=== PATIENT | female | born 1930 | race Caucasian/White ===

== ENCOUNTER 2017-10-04 14:43 | Outpatient (CLI) | payer MEDICARE, MEDICAID ==
[~2017-10-04 14:43] MED LIST: ALBU8.5H8 IH; ASPI-1265 PO; DEXL60CA3 PO; FOLI1TAB4 PO; HCTZ25T; IBAN150T PO; LEVO25TA7 PO; MECL-111 PO; NITR0.4T SL; POTA8TAB8 PO; PROC5TAB PO; RIVA10TA PO; SIMV20TA PO
[2017-10-04] MEDS ORDERED: HUM7525 SQ ×2 (15:50)
[2017-10-04] MEDS ORDERED: GABA-532 PO (15:50)
[2017-10-04] MEDS ORDERED: LORA10TA7 PO (15:50)
[2017-10-04] MEDS ORDERED: OXYB5TAB11 PO (15:50)
[2017-10-04 16:17] LABS: BASOPHILS # (AUTO) 0.1 X10'3 (0-0.2); BASOPHILS % (AUTO) 1.8 % (0-1); EOSINOPHILS # (AUTO) 0.2 X10'3 (0-0.9); EOSINOPHILS % (AUTO) 2.9 % (0-6); LYMPHOCYTES # (AUTO) 1.4 X10'3 (1.1-4.8); LYMPHOCYTES % (AUTO) 25.3 % (21-51); MEAN CORPUSCULAR HEMOGLOBIN 30.7 PG (27.0-31.0); MEAN CORPUSCULAR HGB CONC 33.2 % (33.0-36.5); MEAN CORPUSCULAR VOLUME 92.4 FL (78-98); MEAN PLATELET VOLUME 9.5 FL (7.4-10.4); MONOCYTES # (AUTO) 0.6 X10'3 (0-0.9); MONOCYTES % (AUTO) 9.9 % (2-12); NEUTROPHILS # (AUTO) 3.4 X10'3 (1.8-7.7); NEUTROPHILS % (AUTO) 60.1 % (42-75); PRE OP HEMATOCRIT 39.4 % (35.0-45.0); PRE OP HEMOGLOBIN 13.1 g/dL (12.0-16.0); PRE OP PLATELET COUNT 106 X10'3 (140-440); RED BLOOD COUNT 4.27 X10'6 (4.20-5.60); RED CELL DISTRIBUTION WIDTH 14.7 % (11.5-14.5)
[2017-10-04 16:32] LABS: ALBUMIN/GLOBULIN RATIO 0.9 (1.1-1.5); ALKALINE PHOSPHATASE 93 IU/L (46-116); BLOOD UREA NITROGEN 18 MG/DL (7-18); BUN/CREATININE RATIO 22.5 (6.6-38.0); CALCIUM 8.4 MG/DL (8.5-10.1); CHLORIDE 107 MMOL/L (99-107); PRE OP ALT 19 U/L (30-65); PRE OP ANION GAP 1 (8-16); PRE OP AST 10 U/L (10-37); PRE OP BILIRUB, TOTAL 0.3 MG/DL (0.0-1.0); PRE OP POTASSIUM 3.9 MMOL/L (3.4-5.1); PRE OP SODIUM 139 MMOL/L (135-145); TOTAL CARBON DIOXIDE 30.7 MMOL/L (24-32); TOTAL PROTEIN 6.4 G/DL (6.4-8.2); eGFR 68 ML/MIN
[2017-10-04 16:34] LABS: HEMOGLOBIN A1C 7.4 % (4.5-6.2)
[2017-10-04 16:36] LABS: PRE OP GLUCOSE 235 MG/DL (70-104)
== END 2017-10-04 23:59 | disposition home or self-care (01) ==
LOC: PRE-OP 14:43 → EDSTATUS 10-10 09:45
PROVIDERS: ATTEND Orthopaedic Surgery
DX: Z01.818 Encounter for other preprocedural examination (principal); M19.011 Primary osteoarthritis, right shoulder; M75.121 Complete rotator cuff tear or rupture of right shoulder, not specified as traumatic; I11.0 Hypertensive heart disease with heart failure; I50.9 Heart failure, unspecified; J44.9 Chronic obstructive pulmonary disease, unspecified; E11.9 Type 2 diabetes mellitus without complications; J45.909 Unspecified asthma, uncomplicated; Z86.73 Personal history of transient ischemic attack (TIA), and cerebral infarction without residual deficits; Z85.3 Personal history of malignant neoplasm of breast
CPT/HCPCS: 36415; 71046; 80053; 83036; 85025; 87070

== ENCOUNTER 2017-11-08 22:23 | Inpatient (IN) | payer MEDICARE, MEDICAID ==
[~2017-11-08] VITALS: Ht 157.5 cm; Wt 102.7 kg
[~2017-11-08 22:23] MED LIST changes: -DEXL60CA3 PO; -FOLI1TAB4 PO; +GABA-532 PO; -HCTZ25T; +HUM7525 SQ; -IBAN150T PO; +LORA10TA7 PO; -MECL-111 PO; +OXYB5TAB11 PO; -POTA8TAB8 PO
[2017-11-08 22:41] LABS: BASOPHILS % (AUTO) 0.3 % (0-1); EOSINOPHILS # (AUTO) 0.2 X10'3 (0-0.9); HEMATOCRIT 38.4 % (35.0-45.0); HEMOGLOBIN 13.2 g/dl (12.0-16.0); LYMPHOCYTES # (AUTO) 1.3 X10'3 (1.1-4.8); LYMPHOCYTES % (AUTO) 23.1 % (21-51); MEAN CORPUSCULAR HEMOGLOBIN 31.5 PG (27.0-31.0); MEAN CORPUSCULAR HGB CONC 34.5 % (33.0-36.5); MEAN CORPUSCULAR VOLUME 91.4 FL (78-98); MEAN PLATELET VOLUME 9.2 FL (7.4-10.4); MONOCYTES # (AUTO) 0.6 X10'3 (0-0.9); MONOCYTES % (AUTO) 10.8 % (2-12); NEUTROPHILS # (AUTO) 3.5 X10'3 (1.8-7.7); NEUTROPHILS % (AUTO) 61.8 % (42-75); PLATELET COUNT 124 X10'3 (140-440); RED CELL DISTRIBUTION WIDTH 14.7 % (11.5-14.5); WHITE BLOOD COUNT 5.7 X10'3 (4.5-11.0)
[2017-11-08 22:54] LABS: PARTIAL THROMBOPLASTIN TIME 25 SECONDS (22-32); PROTHROMBIN TIME 10.4 SECONDS (9.0-12.0)
[2017-11-08 22:57] LABS: ALANINE AMINOTRANSFERASE 15 U/L (12-78); ALBUMIN 3.1 G/DL (3.4-5.0); ALBUMIN/GLOBULIN RATIO 0.8 (1.1-1.5); ALKALINE PHOSPHATASE 90 IU/L (46-116); ANION GAP 7 (8-16); ASPARTATE AMINO TRANSFERASE 12 U/L (10-37); BILIRUBIN,TOTAL 0.5 MG/DL (0.1-1.0); BLOOD UREA NITROGEN 16 MG/DL (7-18); BUN/CREATININE RATIO 19.5 (6.6-38.0); CALCIUM 8.5 MG/DL (8.5-10.1); CHLORIDE 107 MMOL/L (99-107); CREATININE 0.82 MG/DL (0.40-0.90); ETHANOL < 0.010 GM/DL (0.0-0.010); GLUCOSE 226 MG/DL (70-104); MAGNESIUM 1.8 MG/DL (1.5-2.4); PHOSPHORUS 2.9 MG/DL (2.3-4.5); POTASSIUM 3.8 MMOL/L (3.5-5.1); SODIUM 143 MMOL/L (135-145); TOTAL CARBON DIOXIDE 28.8 MMOL/L (24-32); TOTAL PROTEIN 6.9 G/DL (6.4-8.2); eGFR 66 ML/MIN
[2017-11-08] MEDS ORDERED: aspirin 325mg tablet PO ONE (23:15)
[2017-11-09] MEDS ORDERED: levetiracetam 100mg/ml inj IV ONE (00:51)
[2017-11-09 00:57] LABS: CLARITY,URINE SLIGHTLY CLOUDY (Clear); COLOR,URINE YELLOW (Yellow); GLUCOSE, URINE 100 mg/dl (Neg); KETONES,URINE NEGATIVE (Neg); LEUKOCYTE ESTERASE ,URINE TRACE (Neg); NITRITES, URINE POSITIVE (Neg); OCCULT BLOOD,URINE SMALL (Neg); PROTEIN,URINE NEGATIVE (Neg)
[2017-11-09 01:22] LABS: UA COLLECTION TYPE CLN CATCH MIDSTREAM
[2017-11-09] MEDS: levetiracetam inj 1,000 MG in normal saline 100ml IV soln 90 ML IV SCH ×3 (01:36→19:38)
[2017-11-09 01:39] LABS: BACTERIA,URINE 4+ /HPF (Neg); RBC,URINE 0-2 /HPF (0-2); SQUAMOUS EPITHELIAL CELL,UR FEW /LPF (FEW)
[2017-11-09 01:40] LABS: MUCUS STRANDS NONE SEEN /LPF (Neg)
[2017-11-09] MEDS ORDERED: CefTRIAXone 2gm/NS 100ml IVPB 100 ML IV ONE (03:40)
[2017-11-09] MEDS ORDERED: magnesium hydroxide 30ml (MOM) UD suspension PO PRN (04:25)
[2017-11-09] MEDS ORDERED: acetaminophen 325mg tablet PO PRN (04:25)
[2017-11-09] MEDS ORDERED: ondansetron/PF 4mg/2ml inj IV PRN ×2 (04:25→17:20)
[2017-11-09] MEDS ORDERED: mag hydrox/Alum hydrox/simeth 30ml oral suspension PO PRN (04:25)
[2017-11-09] MEDS ORDERED: nitroGLYCERIN 0.4mg SUBLingual tab SL PRN (04:30)
[2017-11-09] MEDS ORDERED: albuterol 2.5 MG/3 ML nebule NEB PRN (04:57)
[2017-11-09] MEDS ORDERED: levetiracetam inj 1,000 MG in normal saline 100ml IV soln 90 ML IV SCH ×4 (08:00)
[2017-11-09] MEDS: levoTHYROXINE 25mcg tablet PO SCH (08:53)
[2017-11-09] MEDS: atorvastatin 10mg tablet PO SCH (08:53)
[2017-11-09] MEDS: rivaroxaban 10mg tablet PO SCH (09:45)
[2017-11-09 14:15] VITALS: BP 118/69
[2017-11-09] MEDS ORDERED: guaiFENesin/DM/phenylephrine syrup 120ml bottle PO PRN (15:50)
[2017-11-09] MEDS ORDERED: dextrose ORAL solution 15 GM/59 ML bottle PO PRN ×2 (17:25)
[2017-11-09] MEDS ORDERED: glucagon, human recombinant 1mg kit SUBCUT PRN (17:25)
[2017-11-09] MEDS ORDERED: dextrose 50%-water 50ml dispensing syringe IV PRN ×2 (17:25)
[2017-11-09] MEDS ORDERED: MESSAGE TO PHARMACY PO ONE (17:25)
[2017-11-09] MEDS: amox tr/potassium clavulanate 875/125mg TAB PO SCH ×2 (17:30→17:52)
[2017-11-09 18:00] VITALS: BP 129/70
[2017-11-09] MEDS: insulin Lispro (HumaLOG) vial - multi-dose SQ SCH ×2 (18:58→21:36)
[2017-11-09] MEDS: nystatin 15 GM powder TP SCH (21:00)
[2017-11-09] MEDS: aspirin 81mg tab.chew PO SCH (21:13)
[2017-11-09] MEDS: insulin glargine (Lantus) pen - multi-dose SQ SCH (21:35)
[2017-11-09 22:00] VITALS: BP 105/58
[2017-11-10 02:00] VITALS: BP 110/48
[2017-11-10 06:27] LABS: BASOPHILS % (AUTO) 0.2 % (0-1); EOSINOPHILS # (AUTO) 0.2 X10'3 (0-0.9); EOSINOPHILS % (AUTO) 5.4 % (0-6); HEMATOCRIT 35.3 % (35.0-45.0); LYMPHOCYTES # (AUTO) 1.3 X10'3 (1.1-4.8); LYMPHOCYTES % (AUTO) 30.3 % (21-51); MEAN CORPUSCULAR HEMOGLOBIN 31.1 PG (27.0-31.0); MEAN CORPUSCULAR VOLUME 91.6 FL (78-98); MEAN PLATELET VOLUME 10.4 FL (7.4-10.4); MONOCYTES # (AUTO) 0.5 X10'3 (0-0.9); MONOCYTES % (AUTO) 11.4 % (2-12); NEUTROPHILS # (AUTO) 2.3 X10'3 (1.8-7.7); NEUTROPHILS % (AUTO) 52.7 % (42-75); PLATELET COUNT 113 X10'3 (140-440); RED BLOOD COUNT 3.86 X10'6 (4.20-5.60); RED CELL DISTRIBUTION WIDTH 14.8 % (11.5-14.5); WHITE BLOOD COUNT 4.3 X10'3 (4.5-11.0)
[2017-11-10 06:43] VITALS: BP 127/59
[2017-11-10 06:44] LABS: ALANINE AMINOTRANSFERASE 18 U/L (12-78); ALBUMIN 2.6 G/DL (3.4-5.0); ALBUMIN/GLOBULIN RATIO 0.8 (1.1-1.5); ALKALINE PHOSPHATASE 74 IU/L (46-116); ANION GAP 9 (8-16); ASPARTATE AMINO TRANSFERASE 14 U/L (10-37); BILIRUBIN,TOTAL 0.5 MG/DL (0.1-1.0); BLOOD UREA NITROGEN 20 MG/DL (7-18); BUN/CREATININE RATIO 27.8 (6.6-38.0); CALCIUM 8.5 MG/DL (8.5-10.1); CHLORIDE 108 MMOL/L (99-107); CREATININE 0.72 MG/DL (0.40-0.90); GLUCOSE 194 MG/DL (70-104); POTASSIUM 4.1 MMOL/L (3.5-5.1); SODIUM 144 MMOL/L (135-145); TOTAL CARBON DIOXIDE 26.8 MMOL/L (24-32); eGFR 77 ML/MIN
[2017-11-10] MEDS: levoTHYROXINE 25mcg tablet PO SCH (07:58)
[2017-11-10] MEDS: cetirizine 10mg tablet PO SCH (07:58)
[2017-11-10] MEDS: atorvastatin 10mg tablet PO SCH (07:58)
[2017-11-10] MEDS: levetiracetam inj 1,000 MG in normal saline 100ml IV soln 90 ML IV SCH (07:59)
[2017-11-10] MEDS: rivaroxaban 10mg tablet PO SCH (07:59)
[2017-11-10] MEDS: amox tr/potassium clavulanate 875/125mg TAB PO SCH ×2 (07:59→18:07)
[2017-11-10] MEDS: nystatin 15 GM powder TP SCH ×3 (08:00→21:25)
[2017-11-10 08:49] LABS: LARGE PLATELETS FEW; PLATELET ESTIMATE DECREASED
[2017-11-10] MEDS: insulin Lispro (HumaLOG) vial - multi-dose SQ SCH ×3 (09:17→18:55)
[2017-11-10 10:00] VITALS: BP 124/55
[2017-11-10 18:00] VITALS: BP 119/52
[2017-11-10] MEDS: lactobacillus rhamnosus 10,000 MMU CELLS/CAPSULE PO SCH (18:07)
[2017-11-10] MEDS: NUT.TX.GLUC.INTOLER,LAC-FR,REG (BOOST GLUCOSE CONTROL) 237 ML PO SCH (18:07)
[2017-11-10] MEDS ORDERED: levetiracetam 250mg tablet PO SCH (20:00)
[2017-11-10] MEDS: aspirin 81mg tab.chew PO SCH (21:24)
[2017-11-10] MEDS: insulin glargine (Lantus) pen - multi-dose SQ SCH (21:27)
[2017-11-10 22:00] VITALS: BP 111/45
[2017-11-11 06:00] VITALS: BP 125/52
[2017-11-11 06:01] LABS: BASOPHILS % (AUTO) 0.4 % (0-1); EOSINOPHILS # (AUTO) 0.3 X10'3 (0-0.9); EOSINOPHILS % (AUTO) 5.4 % (0-6); HEMATOCRIT 34.9 % (35.0-45.0); HEMOGLOBIN 11.9 g/dl (12.0-16.0); LYMPHOCYTES # (AUTO) 1.5 X10'3 (1.1-4.8); LYMPHOCYTES % (AUTO) 30.9 % (21-51); MEAN CORPUSCULAR HEMOGLOBIN 31.3 PG (27.0-31.0); MEAN CORPUSCULAR HGB CONC 34.2 % (33.0-36.5); MEAN CORPUSCULAR VOLUME 91.5 FL (78-98); MONOCYTES # (AUTO) 0.5 X10'3 (0-0.9); MONOCYTES % (AUTO) 10.8 % (2-12); NEUTROPHILS # (AUTO) 2.5 X10'3 (1.8-7.7); NEUTROPHILS % (AUTO) 52.5 % (42-75); PLATELET COUNT 116 X10'3 (140-440); RED BLOOD COUNT 3.82 X10'6 (4.20-5.60); RED CELL DISTRIBUTION WIDTH 14.8 % (11.5-14.5); WHITE BLOOD COUNT 4.8 X10'3 (4.5-11.0)
[2017-11-11 07:08] LABS: ANION GAP 10 (8-16); BILIRUBIN,TOTAL 0.4 MG/DL (0.1-1.0); BLOOD UREA NITROGEN 24 MG/DL (7-18); BUN/CREATININE RATIO 33.8 (6.6-38.0); CALCIUM 8.3 MG/DL (8.5-10.1); CHLORIDE 106 MMOL/L (99-107); CREATININE 0.71 MG/DL (0.40-0.90); GLUCOSE 149 MG/DL (70-104); SODIUM 142 MMOL/L (135-145); TOTAL PROTEIN 5.8 G/DL (6.4-8.2); eGFR 78 ML/MIN
[2017-11-11 07:09] LABS: ALANINE AMINOTRANSFERASE 19 U/L (12-78); ALBUMIN 2.5 G/DL (3.4-5.0); ALBUMIN/GLOBULIN RATIO 0.8 (1.1-1.5); ALKALINE PHOSPHATASE 72 IU/L (46-116); ASPARTATE AMINO TRANSFERASE 12 U/L (10-37)
[2017-11-11] MEDS: levoTHYROXINE 25mcg tablet PO SCH (07:33)
[2017-11-11] MEDS: amox tr/potassium clavulanate 875/125mg TAB PO SCH ×2 (07:33→18:34)
[2017-11-11] MEDS: rivaroxaban 10mg tablet PO SCH (07:34)
[2017-11-11] MEDS: atorvastatin 10mg tablet PO SCH (07:34)
[2017-11-11] MEDS: cetirizine 10mg tablet PO SCH (07:35)
[2017-11-11] MEDS: lactobacillus rhamnosus 10,000 MMU CELLS/CAPSULE PO SCH ×2 (07:35→18:34)
[2017-11-11] MEDS: nystatin 15 GM powder TP SCH ×3 (08:00→21:14)
[2017-11-11] MEDS: NUT.TX.GLUC.INTOLER,LAC-FR,REG (BOOST GLUCOSE CONTROL) 237 ML PO SCH ×3 (08:00→18:00)
[2017-11-11] MEDS: insulin Lispro (HumaLOG) vial - multi-dose SQ SCH ×3 (09:30→18:43)
[2017-11-11 19:00] VITALS: BP 116/54
[2017-11-11] MEDS: aspirin 81mg tab.chew PO SCH (20:26)
[2017-11-11] MEDS: insulin glargine (Lantus) pen - multi-dose SQ SCH (21:17)
[2017-11-11 22:00] VITALS: BP 118/50
[2017-11-12 06:00] VITALS: BP 136/66
[2017-11-12 06:23] LABS: BASOPHILS % (AUTO) 0.5 % (0-1); EOSINOPHILS # (AUTO) 0.3 X10'3 (0-0.9); EOSINOPHILS % (AUTO) 5.3 % (0-6); HEMATOCRIT 38.6 % (35.0-45.0); HEMOGLOBIN 13.2 g/dl (12.0-16.0); LYMPHOCYTES # (AUTO) 1.6 X10'3 (1.1-4.8); MEAN CORPUSCULAR HEMOGLOBIN 31.4 PG (27.0-31.0); MEAN CORPUSCULAR HGB CONC 34.2 % (33.0-36.5); MEAN CORPUSCULAR VOLUME 91.8 FL (78-98); MEAN PLATELET VOLUME 10.3 FL (7.4-10.4); MONOCYTES # (AUTO) 0.5 X10'3 (0-0.9); MONOCYTES % (AUTO) 9.5 % (2-12); NEUTROPHILS # (AUTO) 3.2 X10'3 (1.8-7.7); NEUTROPHILS % (AUTO) 55.7 % (42-75); PLATELET COUNT 130 X10'3 (140-440); RED CELL DISTRIBUTION WIDTH 14.6 % (11.5-14.5); WHITE BLOOD COUNT 5.7 X10'3 (4.5-11.0)
[2017-11-12 07:13] LABS: ALANINE AMINOTRANSFERASE 22 U/L (12-78); ALBUMIN 2.9 G/DL (3.4-5.0); ALBUMIN/GLOBULIN RATIO 0.8 (1.1-1.5); ALKALINE PHOSPHATASE 78 IU/L (46-116); ANION GAP 9 (8-16); ASPARTATE AMINO TRANSFERASE 16 U/L (10-37); BILIRUBIN,TOTAL 0.5 MG/DL (0.1-1.0); BLOOD UREA NITROGEN 23 MG/DL (7-18); BUN/CREATININE RATIO 32.9 (6.6-38.0); CALCIUM 8.8 MG/DL (8.5-10.1); CHLORIDE 105 MMOL/L (99-107); GLUCOSE 137 MG/DL (70-104); POTASSIUM 4.3 MMOL/L (3.5-5.1); SODIUM 143 MMOL/L (135-145); TOTAL CARBON DIOXIDE 29.4 MMOL/L (24-32); TOTAL PROTEIN 6.5 G/DL (6.4-8.2); eGFR 79 ML/MIN
[2017-11-12] MEDS: NUT.TX.GLUC.INTOLER,LAC-FR,REG (BOOST GLUCOSE CONTROL) 237 ML PO SCH ×3 (08:10→18:00)
[2017-11-12] MEDS: lactobacillus rhamnosus 10,000 MMU CELLS/CAPSULE PO SCH ×2 (08:15→17:12)
[2017-11-12] MEDS: cetirizine 10mg tablet PO SCH (08:16)
[2017-11-12] MEDS: rivaroxaban 10mg tablet PO SCH (08:16)
[2017-11-12] MEDS: levoTHYROXINE 25mcg tablet PO SCH (08:16)
[2017-11-12] MEDS: atorvastatin 10mg tablet PO SCH (08:16)
[2017-11-12] MEDS: nystatin 15 GM powder TP SCH ×3 (08:17→21:12)
[2017-11-12] MEDS: amox tr/potassium clavulanate 875/125mg TAB PO SCH ×2 (08:17→17:11)
[2017-11-12] MEDS: insulin Lispro (HumaLOG) vial - multi-dose SQ SCH ×3 (09:07→19:17)
[2017-11-12 10:00] VITALS: BP 130/57
[2017-11-12 18:00] VITALS: BP 148/56
[2017-11-12] MEDS: aspirin 81mg tab.chew PO SCH (21:01)
[2017-11-12] MEDS: insulin glargine (Lantus) pen - multi-dose SQ SCH (21:09)
[2017-11-12 22:00] VITALS: BP 129/52
[2017-11-13 05:21] LABS: BASOPHILS % (AUTO) 0.3 % (0-1); EOSINOPHILS # (AUTO) 0.4 X10'3 (0-0.9); EOSINOPHILS % (AUTO) 5.3 % (0-6); HEMATOCRIT 39.7 % (35.0-45.0); HEMOGLOBIN 13.8 g/dl (12.0-16.0); LYMPHOCYTES # (AUTO) 1.9 X10'3 (1.1-4.8); MEAN CORPUSCULAR HEMOGLOBIN 31.6 PG (27.0-31.0); MEAN CORPUSCULAR HGB CONC 34.6 % (33.0-36.5); MEAN CORPUSCULAR VOLUME 91.1 FL (78-98); MEAN PLATELET VOLUME 9.3 FL (7.4-10.4); MONOCYTES # (AUTO) 0.6 X10'3 (0-0.9); MONOCYTES % (AUTO) 9.3 % (2-12); NEUTROPHILS # (AUTO) 3.7 X10'3 (1.8-7.7); NEUTROPHILS % (AUTO) 56.1 % (42-75); PLATELET COUNT 139 X10'3 (140-440); RED BLOOD COUNT 4.36 X10'6 (4.20-5.60); RED CELL DISTRIBUTION WIDTH 14.5 % (11.5-14.5); WHITE BLOOD COUNT 6.6 X10'3 (4.5-11.0)
[2017-11-13 05:47] LABS: ALANINE AMINOTRANSFERASE 23 U/L (12-78); ALBUMIN 2.9 G/DL (3.4-5.0); ALBUMIN/GLOBULIN RATIO 0.8 (1.1-1.5); ALKALINE PHOSPHATASE 71 IU/L (46-116); ANION GAP 7 (8-16); ASPARTATE AMINO TRANSFERASE 17 U/L (10-37); BILIRUBIN,TOTAL 0.6 MG/DL (0.1-1.0); BLOOD UREA NITROGEN 25 MG/DL (7-18); BUN/CREATININE RATIO 33.3 (6.6-38.0); CALCIUM 8.5 MG/DL (8.5-10.1); CHLORIDE 106 MMOL/L (99-107); CREATININE 0.75 MG/DL (0.40-0.90); GLUCOSE 111 MG/DL (70-104); POTASSIUM 4.4 MMOL/L (3.5-5.1); SODIUM 142 MMOL/L (135-145); TOTAL CARBON DIOXIDE 28.7 MMOL/L (24-32); TOTAL PROTEIN 6.5 G/DL (6.4-8.2); eGFR 73 ML/MIN
[2017-11-13 06:00] VITALS: BP 109/48
[2017-11-13] MEDS: NUT.TX.GLUC.INTOLER,LAC-FR,REG (BOOST GLUCOSE CONTROL) 237 ML PO SCH ×3 (08:27→18:00)
[2017-11-13] MEDS: levoTHYROXINE 25mcg tablet PO SCH (08:31)
[2017-11-13] MEDS: atorvastatin 10mg tablet PO SCH (08:32)
[2017-11-13] MEDS: lactobacillus rhamnosus 10,000 MMU CELLS/CAPSULE PO SCH ×2 (08:33→17:20)
[2017-11-13] MEDS: cetirizine 10mg tablet PO SCH (08:33)
[2017-11-13] MEDS: amox tr/potassium clavulanate 875/125mg TAB PO SCH ×2 (08:34→17:19)
[2017-11-13] MEDS: rivaroxaban 10mg tablet PO SCH (08:35)
[2017-11-13] MEDS: nystatin 15 GM powder TP SCH ×3 (08:35→21:50)
[2017-11-13] MEDS: insulin Lispro (HumaLOG) vial - multi-dose SQ SCH ×3 (09:00→19:17)
[2017-11-13 10:00] VITALS: BP 125/54
[2017-11-13 18:02] VITALS: BP 112/61
[2017-11-13] MEDS: aspirin 81mg tab.chew PO SCH (19:17)
[2017-11-13] MEDS: insulin glargine (Lantus) pen - multi-dose SQ SCH (21:42)
[2017-11-13 22:01] VITALS: BP 122/44
[2017-11-14 06:00] VITALS: BP 119/60
[2017-11-14 06:28] LABS: BASOPHILS % (AUTO) 0.4 % (0-1); EOSINOPHILS # (AUTO) 0.3 X10'3 (0-0.9); EOSINOPHILS % (AUTO) 4.8 % (0-6); HEMATOCRIT 39.9 % (35.0-45.0); HEMOGLOBIN 13.7 g/dl (12.0-16.0); LYMPHOCYTES # (AUTO) 1.6 X10'3 (1.1-4.8); LYMPHOCYTES % (AUTO) 25.8 % (21-51); MEAN CORPUSCULAR HEMOGLOBIN 31.5 PG (27.0-31.0); MEAN CORPUSCULAR HGB CONC 34.3 % (33.0-36.5); MEAN CORPUSCULAR VOLUME 91.8 FL (78-98); MEAN PLATELET VOLUME 9.9 FL (7.4-10.4); MONOCYTES # (AUTO) 0.6 X10'3 (0-0.9); MONOCYTES % (AUTO) 9.8 % (2-12); NEUTROPHILS # (AUTO) 3.6 X10'3 (1.8-7.7); NEUTROPHILS % (AUTO) 59.2 % (42-75); PLATELET COUNT 135 X10'3 (140-440); RED BLOOD COUNT 4.35 X10'6 (4.20-5.60); RED CELL DISTRIBUTION WIDTH 14.4 % (11.5-14.5)
[2017-11-14 06:48] LABS: ALANINE AMINOTRANSFERASE 24 U/L (12-78); ALBUMIN 2.8 G/DL (3.4-5.0); ALBUMIN/GLOBULIN RATIO 0.8 (1.1-1.5); ALKALINE PHOSPHATASE 74 IU/L (46-116); ANION GAP 9 (8-16); ASPARTATE AMINO TRANSFERASE 19 U/L (10-37); BILIRUBIN,TOTAL 0.7 MG/DL (0.1-1.0); BLOOD UREA NITROGEN 28 MG/DL (7-18); BUN/CREATININE RATIO 36.4 (6.6-38.0); CALCIUM 8.7 MG/DL (8.5-10.1); CHLORIDE 105 MMOL/L (99-107); CREATININE 0.77 MG/DL (0.40-0.90); GLUCOSE 168 MG/DL (70-104); POTASSIUM 4.4 MMOL/L (3.5-5.1); SODIUM 141 MMOL/L (135-145); TOTAL CARBON DIOXIDE 27.4 MMOL/L (24-32); TOTAL PROTEIN 6.4 G/DL (6.4-8.2); eGFR 71 ML/MIN
[2017-11-14] MEDS ORDERED: gabapentin 300mg capsule PO SCH (08:00)
[2017-11-14] MEDS: NUT.TX.GLUC.INTOLER,LAC-FR,REG (BOOST GLUCOSE CONTROL) 237 ML PO SCH (08:14)
[2017-11-14] MEDS: levoTHYROXINE 25mcg tablet PO SCH (08:22)
[2017-11-14] MEDS: lactobacillus rhamnosus 10,000 MMU CELLS/CAPSULE PO SCH (08:22)
[2017-11-14] MEDS: amox tr/potassium clavulanate 875/125mg TAB PO SCH (08:22)
[2017-11-14] MEDS: rivaroxaban 10mg tablet PO SCH (08:23)
[2017-11-14] MEDS: cetirizine 10mg tablet PO SCH (08:23)
[2017-11-14] MEDS: atorvastatin 10mg tablet PO SCH (08:23)
[2017-11-14] MEDS: nystatin 15 GM powder TP SCH (08:24)
[2017-11-14] MEDS: insulin Lispro (HumaLOG) vial - multi-dose SQ SCH (08:52)
[2017-11-14 10:00] VITALS: BP 110/55
[2017-11-14] MEDS ORDERED: AMOX-580 PO (11:36)
== END 2017-11-14 12:30 | disposition home or self-care (01) | DRG 689 ==
LOC: ER 22:23 → ED HOLD 11-09 04:25 → ORTHO 4S 11-09 14:00
PROVIDERS: ADMIT Internal Medicine; ATTEND Internal Medicine
PROC: 4A00X4Z Measurement of Central Nervous Electrical Activity, External Approach (ICD-10-PCS; principal; 2017-11-10)
DX: N39.0 Urinary tract infection, site not specified (principal); G93.40 Encephalopathy, unspecified; D69.6 Thrombocytopenia, unspecified; I48.91 Unspecified atrial fibrillation; E11.9 Type 2 diabetes mellitus without complications; B96.20 Unspecified Escherichia coli [E. coli] as the cause of diseases classified elsewhere; E03.9 Hypothyroidism, unspecified; E78.00 Pure hypercholesterolemia, unspecified; J44.9 Chronic obstructive pulmonary disease, unspecified; J01.90 Acute sinusitis, unspecified; G89.29 Other chronic pain; M19.90 Unspecified osteoarthritis, unspecified site; I10 Essential (primary) hypertension; I25.10 Atherosclerotic heart disease of native coronary artery without angina pectoris; J32.9 Chronic sinusitis, unspecified; Z90.49 Acquired absence of other specified parts of digestive tract; Z90.710 Acquired absence of both cervix and uterus; Z88.5 Allergy status to narcotic agent; Z88.6 Allergy status to analgesic agent; Z88.8 Allergy status to other drugs, medicaments and biological substances; Z79.01 Long term (current) use of anticoagulants; Z79.4 Long term (current) use of insulin; Z79.82 Long term (current) use of aspirin; Z79.899 Other long term (current) drug therapy; Z85.3 Personal history of malignant neoplasm of breast; Z86.73 Personal history of transient ischemic attack (TIA), and cerebral infarction without residual deficits; Z87.11 Personal history of peptic ulcer disease; Z87.442 Personal history of urinary calculi
CPT/HCPCS: 36415; 70450; 70551; 71045; 80053; 80320; 81001; 82948; 83036; 83735; 84100; 84484; 85025; 85610; 85730; 87070; 87077; 87088; 87186; 92616; 93005; 93306; 94760; 95816; 96365; 97110; 97116; 97161; 97530; 99285; A6212; A6213; J0696; J1815; J1953; J2405; J7030

== ENCOUNTER 2018-05-18 20:02 | Inpatient (IN) | payer MEDICARE, MEDICAID ==
[~2018-05-18] VITALS: Ht 157.5 cm; Wt 104.8 kg
[~2018-05-18 20:02] MED LIST changes: +AMOX-580 PO; -OXYB5TAB11 PO; -PROC5TAB PO; +PROC5TAB10 PO
[2018-05-18 20:31] LABS: BASOPHILS % (AUTO) 0.3 % (0-1); EOSINOPHILS % (AUTO) 0 % (0-6); HEMATOCRIT 41.8 % (35.0-45.0); LYMPHOCYTES # (AUTO) 0.5 X10'3 (1.1-4.8); MEAN CORPUSCULAR HEMOGLOBIN 30.8 PG (27.0-31.0); MEAN CORPUSCULAR HGB CONC 33.5 % (33.0-36.5); MEAN CORPUSCULAR VOLUME 91.9 FL (78-98); MEAN PLATELET VOLUME 9.5 FL (7.4-10.4); MONOCYTES # (AUTO) 0.5 X10'3 (0-0.9); MONOCYTES % (AUTO) 3.6 % (2-12); NEUTROPHILS # (AUTO) 12.5 X10'3 (1.8-7.7); NEUTROPHILS % (AUTO) 92.1 % (42-75); PLATELET COUNT 125 X10'3 (140-440); RED BLOOD COUNT 4.55 X10'6 (4.20-5.60); RED CELL DISTRIBUTION WIDTH 14.7 % (11.5-14.5); WHITE BLOOD COUNT 13.6 X10'3 (4.5-11.0)
[2018-05-18 20:40] LABS: PARTIAL THROMBOPLASTIN TIME 24 SECONDS (22-32); PROTHROMBIN TIME 10.8 SECONDS (9.0-12.0)
[2018-05-18 20:47] LABS: ALANINE AMINOTRANSFERASE 13 U/L (12-78); ALBUMIN 3.1 G/DL (3.4-5.0); ALBUMIN/GLOBULIN RATIO 0.8 (1.1-1.5); ALKALINE PHOSPHATASE 65 IU/L (46-116); ANION GAP 10 (8-16); ASPARTATE AMINO TRANSFERASE 14 U/L (10-37); BILIRUBIN,TOTAL 0.8 MG/DL (0.1-1.0); BLOOD UREA NITROGEN 25 MG/DL (7-18); BUN/CREATININE RATIO 19.8 (6.6-38.0); CALCIUM 8.8 MG/DL (8.5-10.1); CHLORIDE 102 MMOL/L (99-107); CREATININE 1.26 MG/DL (0.40-0.90); GLUCOSE 251 MG/DL (70-104); POTASSIUM 4.1 MMOL/L (3.5-5.1); SODIUM 139 MMOL/L (135-145); TOTAL CARBON DIOXIDE 27.5 MMOL/L (24-32); TOTAL PROTEIN 6.9 G/DL (6.4-8.2); eGFR 40 ML/MIN
[2018-05-18 20:59] LABS: TOTAL CELLS COUNTED 100
[2018-05-18] MEDS ORDERED: CefTRIAXone 2gm/D5W 50ml 50 ML IV ONE (21:05)
[2018-05-18] MEDS ORDERED: vancomycin/NS 1 GM ADD-VANTAGE 250 ML IV ONE (21:05)
[2018-05-18] MEDS ORDERED: normal saline 1000ML IV soln IV ONE (21:05)
[2018-05-18] MEDS ORDERED: KEPPRA (21:11)
[2018-05-18 21:25] LABS: MAGNESIUM 1.8 MG/DL (1.5-2.4)
[2018-05-18 21:29] LABS: CLARITY,URINE CLOUDY (Clear); COLOR,URINE YELLOW (Yellow); GLUCOSE, URINE NEGATIVE (Neg); KETONES,URINE TRACE mg/dl (Neg); LEUKOCYTE ESTERASE ,URINE LARGE (Neg); NITRITES, URINE NEGATIVE (Neg); OCCULT BLOOD,URINE SMALL (Neg); PROTEIN,URINE NEGATIVE (Neg); UROBILINOGEN,URINE 0.2 E.U/dL (0.2-1.0)
[2018-05-18 21:30] LABS: PLATELET ESTIMATE DECREASED
[2018-05-18 21:38] LABS: UA COLLECTION TYPE STRAIGHT CATH
[2018-05-18 21:40] LABS: BACTERIA,URINE 4+ /HPF (Neg); MUCUS STRANDS FEW /LPF (Neg); RBC,URINE 0-2 /HPF (0-2); SQUAMOUS EPITHELIAL CELL,UR NONE SEEN /LPF (FEW); TRANSITIONAL EPI CELLS,URINE FEW /HPF; WBC,URINE 50-100 /HPF (0-4)
[2018-05-18] MEDS ORDERED: acetaminophen 1,000mg/100ml IV 100 ML IV ONE (23:30)
[2018-05-18] MEDS ORDERED: ketorolac trometh. 30mg/ml inj. IV ONE (23:35)
[2018-05-18] MEDS ORDERED: normal saline 1000ml 1,000 ML IV ONE (23:40)
[2018-05-18] MEDS ORDERED: normal saline 1000ml 1,000 ML IV SCH (23:49)
[2018-05-18] MEDS ORDERED: mag hydrox/Alum hydrox/simeth 30ml oral suspension PO PRN (23:50)
[2018-05-18] MEDS ORDERED: acetaminophen 325mg tablet PO PRN (23:50)
[2018-05-18] MEDS ORDERED: ondansetron/PF 4mg/2ml inj IV PRN (23:50)
[2018-05-18] MEDS ORDERED: magnesium hydroxide 30ml (MOM) UD suspension PO PRN (23:50)
[2018-05-18] MEDS ORDERED: dextrose ORAL solution 15 GM/59 ML bottle PO PRN ×2 (23:55)
[2018-05-18] MEDS ORDERED: glucagon, human recombinant 1mg kit SUBCUT PRN (23:55)
[2018-05-18] MEDS ORDERED: dextrose 50%-water 50ml dispensing syringe IV PRN ×2 (23:55)
[2018-05-18] MEDS ORDERED: MESSAGE TO PHARMACY PO ONE (23:55)
[2018-05-19] VITALS: BP 97/48
[2018-05-19] MEDS ORDERED: nitroGLYCERIN 0.4mg SUBLingual tab SL PRN
[2018-05-19] MEDS ORDERED: proCHLORperazine 5mg tablet PO PRN
[2018-05-19] MEDS ORDERED: albuterol 2.5 MG/3 ML nebule NEB PRN
[2018-05-19 00:14] LABS: HEMOGLOBIN A1C 7.1 % (4.5-6.2)
[2018-05-19] MEDS: LIDOcaine 5% patch TP SCH ×4 (00:15→23:08)
[2018-05-19] MEDS ORDERED: vancomycin/NS 500MG ADD-VANT 100 ML IV ONE (01:00)
[2018-05-19] MEDS: CefTRIAXone/D5W-Rocephin 1gm 50 ML IV SCH ×2 (01:12→08:11)
[2018-05-19 03:30] LABS: ALANINE AMINOTRANSFERASE 12 U/L (12-78); ALBUMIN 2.4 G/DL (3.4-5.0); ALBUMIN/GLOBULIN RATIO 0.7 (1.1-1.5); ALKALINE PHOSPHATASE 47 IU/L (46-116); ANION GAP 7 (8-16); ASPARTATE AMINO TRANSFERASE 21 U/L (10-37); BILIRUBIN,TOTAL 0.5 MG/DL (0.1-1.0); BLOOD UREA NITROGEN 25 MG/DL (7-18); BUN/CREATININE RATIO 22.7 (6.6-38.0); CALCIUM 7.6 MG/DL (8.5-10.1); CHLORIDE 105 MMOL/L (99-107); GLUCOSE 235 MG/DL (70-104); POTASSIUM 3.5 MMOL/L (3.5-5.1); SODIUM 137 MMOL/L (135-145); TOTAL CARBON DIOXIDE 24.6 MMOL/L (24-32); TOTAL PROTEIN 5.7 G/DL (6.4-8.2); eGFR 47 ML/MIN
[2018-05-19] MEDS ORDERED: heparin, porcine 5000 units/ml vial SQ SCH (08:00)
[2018-05-19] MEDS: levetiracetam 250mg tablet PO SCH ×2 (08:11→19:29)
[2018-05-19] MEDS: loratadine 10mg tablet PO SCH (08:11)
[2018-05-19] MEDS: levoTHYROXINE 25mcg tablet PO SCH (08:11)
[2018-05-19] MEDS: nystatin 15 GM powder TP SCH ×3 (08:11→21:25)
[2018-05-19] MEDS: rivaroxaban 10mg tablet PO SCH (08:17)
[2018-05-19 09:06] LABS: BASOPHILS % (AUTO) 0.4 % (0-1); EOSINOPHILS # (AUTO) 0.1 X10'3 (0-0.9); EOSINOPHILS % (AUTO) 0.8 % (0-6); HEMATOCRIT 39.4 % (35.0-45.0); HEMOGLOBIN 13.2 g/dl (12.0-16.0); LYMPHOCYTES % (AUTO) 9.5 % (21-51); MEAN CORPUSCULAR HGB CONC 33.4 % (33.0-36.5); MEAN CORPUSCULAR VOLUME 92.8 FL (78-98); MEAN PLATELET VOLUME 10.4 FL (7.4-10.4); MONOCYTES # (AUTO) 0.6 X10'3 (0-0.9); MONOCYTES % (AUTO) 5.6 % (2-12); NEUTROPHILS # (AUTO) 8.8 X10'3 (1.8-7.7); NEUTROPHILS % (AUTO) 83.7 % (42-75); PLATELET COUNT 100 X10'3 (140-440); RED BLOOD COUNT 4.25 X10'6 (4.20-5.60); RED CELL DISTRIBUTION WIDTH 14.9 % (11.5-14.5); WHITE BLOOD COUNT 10.6 X10'3 (4.5-11.0)
[2018-05-19 14:00] VITALS: BP 119/50
[2018-05-19] MEDS ORDERED: doxycycline hyclate 100mg tablet.DR PO SCH (17:30)
[2018-05-19] MEDS: insulin Lispro (HumaLOG) vial - multi-dose SQ SCH (18:42)
[2018-05-19 19:00] VITALS: BP 121/54
[2018-05-19] MEDS ORDERED: aspirin 81mg tab.chew PO SCH (21:00)
[2018-05-19] MEDS ORDERED: insulin glargine (Lantus) pen - multi-dose SQ SCH (21:00)
[2018-05-19] MEDS ORDERED: atorvastatin 10mg tablet PO SCH (21:00)
[2018-05-19] MEDS: ciprofloxacin 250mg tablet PO SCH (22:10)
[2018-05-20] VITALS: BP 122/49
[2018-05-20 04:49] LABS: BASOPHILS % (AUTO) 0.2 % (0-1); EOSINOPHILS # (AUTO) 0.1 X10'3 (0-0.9); HEMATOCRIT 35.5 % (35.0-45.0); HEMOGLOBIN 12.1 g/dl (12.0-16.0); LYMPHOCYTES # (AUTO) 0.9 X10'3 (1.1-4.8); LYMPHOCYTES % (AUTO) 9.1 % (21-51); MEAN CORPUSCULAR HEMOGLOBIN 31.2 PG (27.0-31.0); MEAN CORPUSCULAR VOLUME 91.8 FL (78-98); MEAN PLATELET VOLUME 10.2 FL (7.4-10.4); MONOCYTES # (AUTO) 0.6 X10'3 (0-0.9); MONOCYTES % (AUTO) 6.2 % (2-12); NEUTROPHILS # (AUTO) 7.8 X10'3 (1.8-7.7); NEUTROPHILS % (AUTO) 83.5 % (42-75); PLATELET COUNT 91 X10'3 (140-440); RED BLOOD COUNT 3.87 X10'6 (4.20-5.60); RED CELL DISTRIBUTION WIDTH 14.9 % (11.5-14.5); WHITE BLOOD COUNT 9.4 X10'3 (4.5-11.0)
[2018-05-20 05:03] LABS: ALANINE AMINOTRANSFERASE 16 U/L (12-78); ALBUMIN 2.2 G/DL (3.4-5.0); ALBUMIN/GLOBULIN RATIO 0.6 (1.1-1.5); ALKALINE PHOSPHATASE 49 IU/L (46-116); ANION GAP 7 (8-16); ASPARTATE AMINO TRANSFERASE 16 U/L (10-37); BILIRUBIN,TOTAL 0.6 MG/DL (0.1-1.0); BLOOD UREA NITROGEN 21 MG/DL (7-18); BUN/CREATININE RATIO 26.3 (6.6-38.0); CALCIUM 7.9 MG/DL (8.5-10.1); CHLORIDE 106 MMOL/L (99-107); GLUCOSE 183 MG/DL (70-104); POTASSIUM 3.7 MMOL/L (3.5-5.1); SODIUM 137 MMOL/L (135-145); TOTAL CARBON DIOXIDE 24.3 MMOL/L (24-32); TOTAL PROTEIN 5.7 G/DL (6.4-8.2); eGFR 68 ML/MIN
[2018-05-20 05:34] LABS: TOTAL CELLS COUNTED 100
[2018-05-20 05:35] LABS: PLATELET ESTIMATE DECREASED
[2018-05-20] MEDS: nystatin 15 GM powder TP SCH ×2 (07:10→12:24)
[2018-05-20] MEDS: loratadine 10mg tablet PO SCH (07:11)
[2018-05-20] MEDS: LIDOcaine 5% patch TP SCH ×2 (07:11→08:00)
[2018-05-20] MEDS: levoTHYROXINE 25mcg tablet PO SCH (07:12)
[2018-05-20] MEDS: levetiracetam 250mg tablet PO SCH (07:12)
[2018-05-20] MEDS: rivaroxaban 10mg tablet PO SCH (07:13)
[2018-05-20] MEDS ORDERED: DOXYCYCLINE 100MG CAPSULE PO SCH (07:30)
[2018-05-20 07:32] VITALS: BP 119/58
[2018-05-20] MEDS ORDERED: gabapentin 300mg capsule PO SCH (08:00)
[2018-05-20] MEDS ORDERED: DOXY-224 PO (09:23)
[2018-05-20] MEDS ORDERED: LANTUS SQ (09:23)
[2018-05-20] MEDS ORDERED: NEOM1PAC2 TP (09:23)
[2018-05-20] MEDS ORDERED: CIPR250T4 PO (09:23)
[2018-05-20] MEDS: ciprofloxacin 250mg tablet PO SCH (09:33)
[2018-05-20] MEDS: insulin Lispro (HumaLOG) vial - multi-dose SQ SCH ×2 (09:35→13:49)
[2018-05-20 12:01] VITALS: BP 112/62
[2018-05-20] MEDS ORDERED: lactobacillus rhamnosus 10,000 MMU CELLS/CAPSULE PO SCH (20:00)
[2018-05-21] MEDS ORDERED: VANCOMYCIN LEVEL IV ONE (23:30)
== END 2018-05-20 14:59 | disposition home or self-care (01) | DRG 871 ==
LOC: ER 20:03 → ED HOLD 23:49 → SUR 3N 05-19 00:40
PROVIDERS: ADMIT Internal Medicine; ATTEND Internal Medicine
DX: A41.9 Sepsis, unspecified organism (principal); N17.0 Acute kidney failure with tubular necrosis; L03.115 Cellulitis of right lower limb; N39.0 Urinary tract infection, site not specified; Z68.41 Body mass index [BMI] 40.0-44.9, adult; E11.9 Type 2 diabetes mellitus without complications; E78.00 Pure hypercholesterolemia, unspecified; G89.29 Other chronic pain; I50.9 Heart failure, unspecified; L89.159 Pressure ulcer of sacral region, unspecified stage; I10 Essential (primary) hypertension; I25.10 Atherosclerotic heart disease of native coronary artery without angina pectoris; I48.91 Unspecified atrial fibrillation; J44.9 Chronic obstructive pulmonary disease, unspecified; R65.20 Severe sepsis without septic shock; M19.90 Unspecified osteoarthritis, unspecified site; M25.511 Pain in right shoulder; Z90.710 Acquired absence of both cervix and uterus; Z90.11 Acquired absence of right breast and nipple; Z79.899 Other long term (current) drug therapy; Z88.5 Allergy status to narcotic agent; Z88.8 Allergy status to other drugs, medicaments and biological substances; Z85.3 Personal history of malignant neoplasm of breast; Z86.73 Personal history of transient ischemic attack (TIA), and cerebral infarction without residual deficits; Z87.11 Personal history of peptic ulcer disease; Z87.442 Personal history of urinary calculi; Z82.5 Family history of asthma and other chronic lower respiratory diseases
CPT/HCPCS: 36415; 71045; 80053; 81001; 82948; 83036; 83605; 83735; 84145; 84484; 85025; 85610; 85730; 87040; 87070; 87077; 87088; 87186; 93005; 96365; 97110; 97116; 97162; 97530; 99285; A4315; J0131; J0696; J1815; J1885; J3370; J7030; Q0164

== ENCOUNTER 2018-06-20 09:30 | Day surgery (SDC) | payer MEDICARE, MEDICAID ==
[~2018-06-20 09:30] MED LIST changes: -AMOX-580 PO; +CIPR250T4 PO; +DOXY-224 PO; -HUM7525 SQ; +KEPPRA; +LANTUS SQ; +NEOM1PAC2 TP
[2018-06-20] MEDS ORDERED: LIDOcaine/PRILOcaine 5gm cream TP ONE (10:00)
== END 2018-06-20 11:06 | disposition home or self-care (01) ==
LOC: WOUND CARE 09:30
PROVIDERS: ATTEND Surgery
DX: E11.622 Type 2 diabetes mellitus with other skin ulcer (principal); L89.322 Pressure ulcer of left buttock, stage 2; L98.411 Non-pressure chronic ulcer of buttock limited to breakdown of skin; I25.10 Atherosclerotic heart disease of native coronary artery without angina pectoris; J44.9 Chronic obstructive pulmonary disease, unspecified; I11.0 Hypertensive heart disease with heart failure; I50.9 Heart failure, unspecified; E78.00 Pure hypercholesterolemia, unspecified; I48.91 Unspecified atrial fibrillation; M19.90 Unspecified osteoarthritis, unspecified site; Z90.710 Acquired absence of both cervix and uterus; Z90.11 Acquired absence of right breast and nipple; Z68.41 Body mass index [BMI] 40.0-44.9, adult; Z79.899 Other long term (current) drug therapy; Z85.3 Personal history of malignant neoplasm of breast; Z87.442 Personal history of urinary calculi; Z86.73 Personal history of transient ischemic attack (TIA), and cerebral infarction without residual deficits; Z87.440 Personal history of urinary (tract) infections
CPT/HCPCS: 36416; 82948; 99215; A6021; A6212; A6222

== ENCOUNTER 2018-07-03 17:24 | Inpatient (IN) | payer MEDICARE, MEDICAID ==
[~2018-07-03] VITALS: Ht 154.9 cm; Wt 100.0 kg
[~2018-07-03 17:24] MED LIST changes: -CIPR250T4 PO; -DOXY-224 PO; -LANTUS SQ; -NEOM1PAC2 TP
[2018-07-03] MEDS ORDERED: LORazepam 2 mg/ml vial ONE (17:27)
[2018-07-03] MEDS ORDERED: LORazepam 2 mg/ml vial IV ONE (17:30)
[2018-07-03 18:35] LABS: ALANINE AMINOTRANSFERASE 20 U/L (12-78); ALBUMIN 3.1 G/DL (3.4-5.0); ALBUMIN/GLOBULIN RATIO 0.9 (1.1-1.5); ALKALINE PHOSPHATASE 88 IU/L (46-116); ANION GAP 10 (8-16); ASPARTATE AMINO TRANSFERASE 17 U/L (10-37); BILIRUBIN,TOTAL 0.5 MG/DL (0.1-1.0); BLOOD UREA NITROGEN 13 MG/DL (7-18); BUN/CREATININE RATIO 18.3 (6.6-38.0); CALCIUM 8.7 MG/DL (8.5-10.1); CHLORIDE 105 MMOL/L (99-107); CREATININE 0.71 MG/DL (0.40-0.90); GLUCOSE 175 MG/DL (70-104); SODIUM 139 MMOL/L (135-145); TOTAL CARBON DIOXIDE 24.2 MMOL/L (24-32); TOTAL PROTEIN 6.7 G/DL (6.4-8.2); eGFR 78 ML/MIN
[2018-07-03 18:41] LABS: POTASSIUM 4.1 MMOL/L (3.5-5.1)
[2018-07-03 18:42] LABS: ETHANOL < 0.010 GM/DL (0.0-0.010)
[2018-07-03 18:47] LABS: URINE AMPHETAMINE SCREEN NEGATIVE (Neg); URINE BARBITUATE SCREEN NEGATIVE (Neg); URINE BENZODIAZEPINES SCREEN POSITIVE (Neg); URINE CANNABINOID SCREEN NEGATIVE (Neg); URINE COCAINE SCREEN NEGATIVE (Neg); URINE METHADONE SCREEN NEGATIVE (Neg); URINE OPIATE SCREEN NEGATIVE (Neg); URINE PHENCYCLIDINE SCREEN NEGATIVE (Neg)
[2018-07-03 18:54] LABS: CLARITY,URINE SLIGHTLY CLOUDY (Clear); COLOR,URINE STRAW (Yellow); GLUCOSE, URINE NEGATIVE (Neg); KETONES,URINE NEGATIVE (Neg); LEUKOCYTE ESTERASE ,URINE SMALL (Neg); NITRITES, URINE POSITIVE (Neg); OCCULT BLOOD,URINE TRACE-INTACT (Neg); PH,URINE 5.5 (4.8-8.0); PROTEIN,URINE NEGATIVE (Neg); UROBILINOGEN,URINE 0.2 E.U/dL (0.2-1.0)
[2018-07-03 19:22] LABS: UA COLLECTION TYPE FOLEY CATH
[2018-07-03 19:23] LABS: BACTERIA,URINE 4+ /HPF (Neg); SQUAMOUS EPITHELIAL CELL,UR FEW /LPF (FEW)
[2018-07-03] MEDS ORDERED: CefTRIAXone/D5W-Rocephin 1gm 50 ML IV ONE (19:25)
[2018-07-03 19:30] LABS: BASOPHILS % (AUTO) 0.3 % (0-1); EOSINOPHILS # (AUTO) 0.2 X10'3 (0-0.9); EOSINOPHILS % (AUTO) 3.3 % (0-6); HEMATOCRIT 35.3 % (35.0-45.0); HEMOGLOBIN 11.8 g/dl (12.0-16.0); LYMPHOCYTES # (AUTO) 1.2 X10'3 (1.1-4.8); MEAN CORPUSCULAR HEMOGLOBIN 30.6 PG (27.0-31.0); MEAN CORPUSCULAR HGB CONC 33.3 % (33.0-36.5); MEAN CORPUSCULAR VOLUME 91.9 FL (78-98); MEAN PLATELET VOLUME 9.5 FL (7.4-10.4); MONOCYTES # (AUTO) 0.6 X10'3 (0-0.9); MONOCYTES % (AUTO) 9.2 % (2-12); NEUTROPHILS # (AUTO) 4.1 X10'3 (1.8-7.7); NEUTROPHILS % (AUTO) 68.2 % (42-75); PLATELET COUNT 163 X10'3 (140-440); RED BLOOD COUNT 3.84 X10'6 (4.20-5.60); RED CELL DISTRIBUTION WIDTH 14.9 % (11.5-14.5); WHITE BLOOD COUNT 6.1 X10'3 (4.5-11.0)
[2018-07-03 19:45] LABS: PARTIAL THROMBOPLASTIN TIME 24 SECONDS (22-32); PROTHROMBIN TIME 10.7 SECONDS (9.0-12.0)
[2018-07-03] MEDS ORDERED: POLY17PO10 PO (20:26)
[2018-07-03] MEDS ORDERED: LEVE750T6 PO (20:26)
[2018-07-03] MEDS ORDERED: DOCU-28 PO (20:27)
[2018-07-03] MEDS ORDERED: OXYB5TAB11 PO (20:30)
[2018-07-03] MEDS ORDERED: temazepam 15mg capsule PO PRN (21:00)
[2018-07-03] MEDS ORDERED: non-formulary drug (Albuterol Sulfate (Proair Hfa) 2 PUFFS) IH PRN (21:20)
[2018-07-03] MEDS ORDERED: magnesium hydroxide 30ml (MOM) UD suspension PO PRN (21:20)
[2018-07-03] MEDS ORDERED: mag hydrox/Alum hydrox/simeth 30ml oral suspension PO PRN (21:20)
[2018-07-03] MEDS ORDERED: acetaminophen 325mg tablet PO PRN ×2 (21:20)
[2018-07-03] MEDS ORDERED: proCHLORperazine 5mg tablet PO PRN (21:20)
[2018-07-03] MEDS ORDERED: diphenhydrAMINE 25mg capsule PO PRN (21:20)
[2018-07-03] MEDS ORDERED: ondansetron/PF 4mg/2ml inj IV PRN (21:20)
[2018-07-03] MEDS ORDERED: diphenhydrAMINE 50 mg/ml inj IV PRN (21:20)
[2018-07-03] MEDS ORDERED: HYDROmorphone 1 mg/ml syringe IV PRN ×2 (21:20)
[2018-07-03] MEDS ORDERED: metoclopramide 5 mg/ml inj IV PRN (21:20)
[2018-07-03] MEDS ORDERED: acetaminophen 650mg rectal suppository RC PRN (21:20)
[2018-07-03] MEDS ORDERED: albuterol 2.5 MG/3 ML nebule NEB PRN (21:25)
[2018-07-03] MEDS ORDERED: dextrose 50%-water 50ml dispensing syringe IV PRN ×2 (21:30)
[2018-07-03] MEDS ORDERED: MESSAGE TO PHARMACY PO ONE (21:30)
[2018-07-03] MEDS ORDERED: glucagon, human recombinant 1mg kit SUBCUT PRN (21:30)
[2018-07-03] MEDS ORDERED: dextrose ORAL solution 15 GM/59 ML bottle PO PRN ×2 (21:30)
[2018-07-03 21:52] LABS: MAGNESIUM 1.8 MG/DL (1.5-2.4); PHOSPHORUS 3.5 MG/DL (2.3-4.5)
[2018-07-03 23:00] VITALS: BP 115/48
[2018-07-04 02:00] VITALS: BP 104/76
[2018-07-04 06:00] VITALS: BP 141/74
[2018-07-04] MEDS ORDERED: non-formulary drug (Levetiracetam (Keppra) 2 TAB) PO SCH (08:00)
[2018-07-04] MEDS ORDERED: levoTHYROXINE 25mcg tablet PO SCH (08:00)
[2018-07-04] MEDS: famotidine 20mg tablet PO SCH ×2 (08:19→19:43)
[2018-07-04] MEDS: oxybutynin 5mg tablet PO SCH (08:19)
[2018-07-04] MEDS: docusate sod 100mg capsule PO SCH ×2 (08:19→19:43)
[2018-07-04] MEDS: levetiracetam 250mg tablet PO SCH ×2 (08:20→19:43)
[2018-07-04] MEDS: CefTRIAXone/D5W-Rocephin 1gm 50 ML IV SCH ×2 (08:21→19:43)
[2018-07-04] MEDS: rivaroxaban 10mg tablet PO SCH (08:22)
[2018-07-04 08:42] LABS: ALANINE AMINOTRANSFERASE 19 U/L (12-78); ALBUMIN 2.8 G/DL (3.4-5.0); ALBUMIN/GLOBULIN RATIO 0.8 (1.1-1.5); ALKALINE PHOSPHATASE 88 IU/L (46-116); ANION GAP 8 (8-16); ASPARTATE AMINO TRANSFERASE 14 U/L (10-37); BILIRUBIN,TOTAL 0.6 MG/DL (0.1-1.0); BLOOD UREA NITROGEN 11 MG/DL (7-18); BUN/CREATININE RATIO 18.6 (6.6-38.0); CALCIUM 8.2 MG/DL (8.5-10.1); CHLORIDE 104 MMOL/L (99-107); CREATININE 0.59 MG/DL (0.40-0.90); GLUCOSE 187 MG/DL (70-104); SODIUM 140 MMOL/L (135-145); TOTAL CARBON DIOXIDE 27.9 MMOL/L (24-32); TOTAL PROTEIN 6.3 G/DL (6.4-8.2); eGFR > 90 ML/MIN
[2018-07-04] MEDS ORDERED: glucagon, human recombinant 1mg kit SUBCUT PRN (09:00)
[2018-07-04] MEDS ORDERED: magnesium Cl slow-release 64mg tablet PO PRN (09:00)
[2018-07-04] MEDS ORDERED: dextrose 50%-water 50ml dispensing syringe IV PRN ×2 (09:00)
[2018-07-04] MEDS ORDERED: MESSAGE TO PHARMACY PO ONE (09:00)
[2018-07-04] MEDS ORDERED: magnesium 4gm in 100ml NS 100 ML IV PRN (09:00)
[2018-07-04] MEDS ORDERED: insulin Lispro (HumaLOG) vial - multi-dose SQ SCH (09:00)
[2018-07-04] MEDS ORDERED: potassium Cl 40MEQ/NS 500ml 500 ML IV PRN ×2 (09:00)
[2018-07-04] MEDS ORDERED: potassium Cl 20 mEq SR tablet PO PRN ×2 (09:00)
[2018-07-04] MEDS ORDERED: dextrose ORAL solution 15 GM/59 ML bottle PO PRN ×2 (09:00)
[2018-07-04] MEDS: azithromycin/NS 500mg/250ml 250 ML IV SCH (09:11)
[2018-07-04] MEDS: insulin Lispro (HumaLOG) vial - multi-dose SQ SCH ×4 (09:25→22:05)
[2018-07-04 10:00] VITALS: BP 144/68
[2018-07-04 10:20] LABS: BASOPHILS % (AUTO) 0.3 % (0-1); EOSINOPHILS # (AUTO) 0.3 X10'3 (0-0.9); EOSINOPHILS % (AUTO) 4.3 % (0-6); HEMATOCRIT 36.5 % (35.0-45.0); HEMOGLOBIN 12.2 g/dl (12.0-16.0); LYMPHOCYTES # (AUTO) 1.3 X10'3 (1.1-4.8); LYMPHOCYTES % (AUTO) 18.4 % (21-51); MEAN CORPUSCULAR HEMOGLOBIN 30.7 PG (27.0-31.0); MEAN CORPUSCULAR HGB CONC 33.3 % (33.0-36.5); MEAN CORPUSCULAR VOLUME 92.2 FL (78-98); MEAN PLATELET VOLUME 10.1 FL (7.4-10.4); MONOCYTES # (AUTO) 0.6 X10'3 (0-0.9); MONOCYTES % (AUTO) 8.1 % (2-12); NEUTROPHILS # (AUTO) 4.7 X10'3 (1.8-7.7); NEUTROPHILS % (AUTO) 68.9 % (42-75); PLATELET COUNT 152 X10'3 (140-440); RED BLOOD COUNT 3.96 X10'6 (4.20-5.60); RED CELL DISTRIBUTION WIDTH 15.7 % (11.5-14.5); WHITE BLOOD COUNT 6.8 X10'3 (4.5-11.0)
[2018-07-04 10:30] LABS: HEMOGLOBIN A1C 8.1 % (4.5-6.2)
[2018-07-04 10:40] LABS: TROPONIN I 0.08 NG/ML (0.0-0.05)
[2018-07-04 10:55] LABS: D-DIMER 1.57 MG/L FEU (0-0.50)
[2018-07-04] MEDS ORDERED: predniSONE 20 mg tablet PO SCH (17:05)
[2018-07-04] MEDS ORDERED: iohexol 350MG/ML 100ml bottle IV ONE (17:07)
[2018-07-04] MEDS: predniSONE 20 mg tablet PO SCH (17:53)
[2018-07-04 18:00] VITALS: BP 117/49
[2018-07-04] MEDS: ipratropium/albuterol 3ml nebule NEB SCH (19:00)
[2018-07-04] MEDS: lactobacillus rhamnosus 10,000 MMU CELLS/CAPSULE PO SCH (19:43)
[2018-07-04] MEDS ORDERED: docusate sod 100mg capsule PO SCH (20:00)
[2018-07-04] MEDS ORDERED: non-formulary drug (Simvastatin (Zocor) 1 TAB) PO SCH (21:00)
[2018-07-04] MEDS: insulin glargine (Lantus) pen - multi-dose SQ SCH (21:00)
[2018-07-04] MEDS: aspirin 81mg tab.chew PO SCH (21:48)
[2018-07-04] MEDS: atorvastatin 10mg tablet PO SCH (21:48)
[2018-07-04 22:00] VITALS: BP 140/69
[2018-07-05 05:00] VITALS: BP 142/65
[2018-07-05 06:43] LABS: BASOPHILS % (AUTO) 0.3 % (0-1); EOSINOPHILS % (AUTO) 0 % (0-6); HEMATOCRIT 35.6 % (35.0-45.0); HEMOGLOBIN 11.8 g/dl (12.0-16.0); LYMPHOCYTES # (AUTO) 0.9 X10'3 (1.1-4.8); LYMPHOCYTES % (AUTO) 12.9 % (21-51); MEAN CORPUSCULAR HEMOGLOBIN 30.7 PG (27.0-31.0); MEAN CORPUSCULAR HGB CONC 33.1 % (33.0-36.5); MEAN CORPUSCULAR VOLUME 92.6 FL (78-98); MEAN PLATELET VOLUME 11.2 FL (7.4-10.4); MONOCYTES # (AUTO) 0.3 X10'3 (0-0.9); MONOCYTES % (AUTO) 4.1 % (2-12); NEUTROPHILS # (AUTO) 6.1 X10'3 (1.8-7.7); NEUTROPHILS % (AUTO) 82.7 % (42-75); PLATELET COUNT 164 X10'3 (140-440); RED BLOOD COUNT 3.85 X10'6 (4.20-5.60); RED CELL DISTRIBUTION WIDTH 15.9 % (11.5-14.5); WHITE BLOOD COUNT 7.3 X10'3 (4.5-11.0)
[2018-07-05 06:52] VITALS: BP 128/70
[2018-07-05 06:54] LABS: ALANINE AMINOTRANSFERASE 19 U/L (12-78); ALBUMIN 2.8 G/DL (3.4-5.0); ALBUMIN/GLOBULIN RATIO 0.7 (1.1-1.5); ALKALINE PHOSPHATASE 86 IU/L (46-116); ANION GAP 7 (8-16); ASPARTATE AMINO TRANSFERASE 14 U/L (10-37); BILIRUBIN,TOTAL 0.5 MG/DL (0.1-1.0); BLOOD UREA NITROGEN 12 MG/DL (7-18); BUN/CREATININE RATIO 17.1 (6.6-38.0); CALCIUM 8.7 MG/DL (8.5-10.1); CHLORIDE 102 MMOL/L (99-107); GLUCOSE 281 MG/DL (70-104); MAGNESIUM 1.7 MG/DL (1.5-2.4); PHOSPHORUS 3.5 MG/DL (2.3-4.5); SODIUM 138 MMOL/L (135-145); TOTAL CARBON DIOXIDE 28.8 MMOL/L (24-32); TOTAL PROTEIN 6.6 G/DL (6.4-8.2); eGFR 79 ML/MIN
[2018-07-05 06:55] LABS: POTASSIUM 4.2 MMOL/L (3.5-5.1)
[2018-07-05] MEDS: CefTRIAXone/D5W-Rocephin 1gm 50 ML IV SCH (07:10)
[2018-07-05 07:45] LABS: LARGE PLATELETS FEW; PLATELET ESTIMATE NORMAL
[2018-07-05] MEDS: azithromycin/NS 500mg/250ml 250 ML IV SCH (08:57)
[2018-07-05] MEDS: lactobacillus rhamnosus 10,000 MMU CELLS/CAPSULE PO SCH ×2 (09:01→20:52)
[2018-07-05] MEDS: docusate sod 100mg capsule PO SCH ×2 (09:01→20:52)
[2018-07-05] MEDS: levetiracetam 250mg tablet PO SCH ×2 (09:02→20:53)
[2018-07-05] MEDS: oxybutynin 5mg tablet PO SCH (09:02)
[2018-07-05] MEDS: famotidine 20mg tablet PO SCH ×2 (09:02→20:53)
[2018-07-05] MEDS: predniSONE 20 mg tablet PO SCH (09:03)
[2018-07-05] MEDS: phenazopyridine 100mg tablet PO SCH ×3 (09:03→18:51)
[2018-07-05] MEDS: rivaroxaban 10mg tablet PO SCH (09:04)
[2018-07-05] MEDS: levoTHYROXINE 25mcg tablet PO SCH (09:04)
[2018-07-05] MEDS: gabapentin 300mg capsule PO SCH (09:05)
[2018-07-05] MEDS: loratadine 10mg tablet PO SCH (09:05)
[2018-07-05] MEDS: insulin Lispro (HumaLOG) vial - multi-dose SQ SCH ×4 (09:09→21:06)
[2018-07-05 10:00] VITALS: BP 117/62
[2018-07-05] MEDS: levoFLOXACIN-Levaquin 750MG/D5 150 ML IV SCH (11:28)
[2018-07-05 17:00] VITALS: BP 117/54
[2018-07-05] MEDS: atorvastatin 10mg tablet PO SCH (20:55)
[2018-07-05] MEDS: aspirin 81mg tab.chew PO SCH (20:56)
[2018-07-05] MEDS: nystatin 15 GM powder TP SCH (20:56)
[2018-07-05] MEDS: insulin glargine (Lantus) pen - multi-dose SQ SCH (21:05)
[2018-07-05 22:00] VITALS: BP 121/59
[2018-07-05] MEDS: ipratropium/albuterol 3ml nebule NEB SCH ×2 (23:00→23:44)
[2018-07-06] MEDS: ipratropium/albuterol 3ml nebule NEB SCH ×6 (02:54→22:58)
[2018-07-06 05:06] LABS: BASOPHILS % (AUTO) 0.1 % (0-1); EOSINOPHILS # (AUTO) 0.1 X10'3 (0-0.9); EOSINOPHILS % (AUTO) 0.7 % (0-6); HEMATOCRIT 33.1 % (35.0-45.0); HEMOGLOBIN 10.9 g/dl (12.0-16.0); LYMPHOCYTES # (AUTO) 1.1 X10'3 (1.1-4.8); LYMPHOCYTES % (AUTO) 14.8 % (21-51); MEAN CORPUSCULAR HEMOGLOBIN 30.4 PG (27.0-31.0); MEAN CORPUSCULAR HGB CONC 32.9 % (33.0-36.5); MEAN CORPUSCULAR VOLUME 92.6 FL (78-98); MEAN PLATELET VOLUME 10.2 FL (7.4-10.4); MONOCYTES # (AUTO) 0.6 X10'3 (0-0.9); NEUTROPHILS # (AUTO) 5.7 X10'3 (1.8-7.7); NEUTROPHILS % (AUTO) 76.4 % (42-75); PLATELET COUNT 162 X10'3 (140-440); RED BLOOD COUNT 3.57 X10'6 (4.20-5.60); RED CELL DISTRIBUTION WIDTH 15.5 % (11.5-14.5); WHITE BLOOD COUNT 7.5 X10'3 (4.5-11.0)
[2018-07-06 05:23] LABS: ALANINE AMINOTRANSFERASE 17 U/L (12-78); ALBUMIN 2.5 G/DL (3.4-5.0); ALBUMIN/GLOBULIN RATIO 0.7 (1.1-1.5); ALKALINE PHOSPHATASE 79 IU/L (46-116); ANION GAP 5 (8-16); ASPARTATE AMINO TRANSFERASE 12 U/L (10-37); BILIRUBIN,TOTAL 0.4 MG/DL (0.1-1.0); BLOOD UREA NITROGEN 13 MG/DL (7-18); BUN/CREATININE RATIO 19.1 (6.6-38.0); CALCIUM 8.4 MG/DL (8.5-10.1); CHLORIDE 105 MMOL/L (99-107); CREATININE 0.68 MG/DL (0.40-0.90); GLUCOSE 226 MG/DL (70-104); MAGNESIUM 1.8 MG/DL (1.5-2.4); PHOSPHORUS 3.7 MG/DL (2.3-4.5); POTASSIUM 3.9 MMOL/L (3.5-5.1); SODIUM 140 MMOL/L (135-145); TOTAL CARBON DIOXIDE 30.2 MMOL/L (24-32); TOTAL PROTEIN 6.1 G/DL (6.4-8.2); eGFR 82 ML/MIN
[2018-07-06 06:00] VITALS: BP 119/58
[2018-07-06] MEDS: nystatin 15 GM powder TP SCH ×3 (08:00→21:00)
[2018-07-06] MEDS: insulin Lispro (HumaLOG) vial - multi-dose SQ SCH ×4 (09:24→22:25)
[2018-07-06] MEDS: levetiracetam 250mg tablet PO SCH ×2 (09:26→19:59)
[2018-07-06] MEDS: lactobacillus rhamnosus 10,000 MMU CELLS/CAPSULE PO SCH ×2 (09:26→19:58)
[2018-07-06] MEDS: famotidine 20mg tablet PO SCH ×2 (09:26→19:58)
[2018-07-06] MEDS: phenazopyridine 100mg tablet PO SCH ×3 (09:26→18:03)
[2018-07-06] MEDS: loratadine 10mg tablet PO SCH (09:26)
[2018-07-06] MEDS: oxybutynin 5mg tablet PO SCH (09:26)
[2018-07-06] MEDS: levoFLOXACIN-Levaquin 750MG/D5 150 ML IV SCH (09:26)
[2018-07-06] MEDS: docusate sod 100mg capsule PO SCH ×2 (09:26→19:58)
[2018-07-06] MEDS: predniSONE 20 mg tablet PO SCH (09:27)
[2018-07-06] MEDS: rivaroxaban 10mg tablet PO SCH (09:27)
[2018-07-06] MEDS: gabapentin 300mg capsule PO SCH (09:27)
[2018-07-06] MEDS: aspirin 81mg tab.chew PO SCH (09:27)
[2018-07-06] MEDS: levoTHYROXINE 25mcg tablet PO SCH (09:33)
[2018-07-06 10:00] VITALS: BP 109/47
[2018-07-06 18:00] VITALS: BP 125/58
[2018-07-06] MEDS: atorvastatin 10mg tablet PO SCH (20:07)
[2018-07-06 22:00] VITALS: BP 113/56
[2018-07-06] MEDS: insulin glargine (Lantus) pen - multi-dose SQ SCH (22:24)
[2018-07-07] MEDS: ipratropium/albuterol 3ml nebule NEB SCH ×3 (03:00→11:04)
[2018-07-07 06:00] VITALS: BP 130/60
[2018-07-07] MEDS: levoFLOXACIN-Levaquin 750MG/D5 150 ML IV SCH (07:23)
[2018-07-07] MEDS: loratadine 10mg tablet PO SCH (07:26)
[2018-07-07] MEDS: predniSONE 20 mg tablet PO SCH (07:26)
[2018-07-07] MEDS: docusate sod 100mg capsule PO SCH (07:26)
[2018-07-07] MEDS: famotidine 20mg tablet PO SCH (07:27)
[2018-07-07] MEDS: oxybutynin 5mg tablet PO SCH (07:27)
[2018-07-07] MEDS: phenazopyridine 100mg tablet PO SCH (07:27)
[2018-07-07] MEDS: lactobacillus rhamnosus 10,000 MMU CELLS/CAPSULE PO SCH (07:27)
[2018-07-07] MEDS: levetiracetam 250mg tablet PO SCH (07:28)
[2018-07-07] MEDS: levoTHYROXINE 25mcg tablet PO SCH (07:28)
[2018-07-07] MEDS: nystatin 15 GM powder TP SCH (07:28)
[2018-07-07] MEDS: rivaroxaban 10mg tablet PO SCH (07:30)
[2018-07-07] MEDS: insulin Lispro (HumaLOG) vial - multi-dose SQ SCH (09:26)
[2018-07-07 10:00] VITALS: BP 122/72
[2018-07-07] MEDS ORDERED: NYSPWD TP (10:13)
[2018-07-07] MEDS ORDERED: LACT1CAP26 PO (10:13)
[2018-07-07] MEDS ORDERED: LEVO25TA7 PO (10:13)
[2018-07-07] MEDS ORDERED: FAMO20TA8 PO (10:13)
[2018-07-07] MEDS ORDERED: PRED20TA PO (10:13)
[2018-07-07] MEDS ORDERED: LEVO500T89 PO (10:16)
[2018-07-07] MEDS ORDERED: GLIM1TAB46 PO (10:17)
[2018-07-07] MEDS ORDERED: METF-950 PO (10:17)
[2018-07-07] MEDS ORDERED: SAXA5TAB PO (10:17)
== END 2018-07-07 12:40 | disposition home health service (06) | DRG 177 ==
LOC: ER 17:24 → ED HOLD 21:19 → ORTHO 4S 22:50
PROVIDERS: ADMIT Family Medicine; ATTEND Family Medicine
PROC: B32T1ZZ Computerized Tomography (CT Scan) of Left Pulmonary Artery using Low Osmolar Contrast (ICD-10-PCS; principal; 2018-07-04)
PROC: B3201ZZ Computerized Tomography (CT Scan) of Thoracic Aorta using Low Osmolar Contrast (ICD-10-PCS; 2018-07-04)
PROC: B32S1ZZ Computerized Tomography (CT Scan) of Right Pulmonary Artery using Low Osmolar Contrast (ICD-10-PCS; 2018-07-04)
DX: J69.0 Pneumonitis due to inhalation of food and vomit (principal); E43 Unspecified severe protein-calorie malnutrition; I21.A1 Myocardial infarction type 2; N39.0 Urinary tract infection, site not specified; I50.32 Chronic diastolic (congestive) heart failure; Z68.41 Body mass index [BMI] 40.0-44.9, adult; J44.1 Chronic obstructive pulmonary disease with (acute) exacerbation; L03.115 Cellulitis of right lower limb; G40.909 Epilepsy, unspecified, not intractable, without status epilepticus; E03.9 Hypothyroidism, unspecified; E66.01 Morbid (severe) obesity due to excess calories; E78.00 Pure hypercholesterolemia, unspecified; E78.5 Hyperlipidemia, unspecified; I11.0 Hypertensive heart disease with heart failure; M19.90 Unspecified osteoarthritis, unspecified site; I25.10 Atherosclerotic heart disease of native coronary artery without angina pectoris; I48.0 Paroxysmal atrial fibrillation; F03.90 Unspecified dementia, unspecified severity, without behavioral disturbance, psychotic disturbance, mood disturbance, and anxiety; I87.2 Venous insufficiency (chronic) (peripheral); E11.65 Type 2 diabetes mellitus with hyperglycemia; B95.2 Enterococcus as the cause of diseases classified elsewhere; Z90.710 Acquired absence of both cervix and uterus; Z99.3 Dependence on wheelchair; Z88.5 Allergy status to narcotic agent; Z79.899 Other long term (current) drug therapy; Z79.82 Long term (current) use of aspirin; Z79.01 Long term (current) use of anticoagulants; Z79.84 Long term (current) use of oral hypoglycemic drugs; Z79.890 Hormone replacement therapy; Z85.3 Personal history of malignant neoplasm of breast; Z86.73 Personal history of transient ischemic attack (TIA), and cerebral infarction without residual deficits; Z87.11 Personal history of peptic ulcer disease; Z87.442 Personal history of urinary calculi; Z82.5 Family history of asthma and other chronic lower respiratory diseases
CPT/HCPCS: 36415; 70450; 71045; 71250; 71275; 80053; 80305; 80320; 81001; 82948; 83036; 83605; 83735; 83880; 84100; 84145; 84443; 84484; 85025; 85379; 85610; 85730; 87040; 87070; 87077; 87088; 87186; 93005; 93970; 94640; 94760; 96365; 97110; 97162; 97530; 99291; J0456; J0696; J1170; J1815; J1956; J2060; J7512; Q9967